=== PATIENT | male | born 1965 | race Caucasian/White ===

== ENCOUNTER → 2017-04-06 | Outpatient (CLI) | payer BC ==
[~2017-04-06] MED LIST: GADOBUTROL 10 ML VIAL IVP ONE
== END ==
LOC: FIMAGING 07:01
PROVIDERS: ATTEND Physical Medicine & Rehabilitation
DX: M25.552 Pain in left hip (principal); R93.6 Abnormal findings on diagnostic imaging of limbs; M16.0 Bilateral primary osteoarthritis of hip; M51.36 Other intervertebral disc degeneration, lumbar region; M76.892 Other specified enthesopathies of left lower limb, excluding foot
CPT/HCPCS: A9585

== ENCOUNTER → 2017-08-24 | Outpatient (CLI) | payer BC | LOC: FIMAGING 12:12 | PROVIDERS: ATTEND Physical Medicine & Rehabilitation | DX: M89.8X8 Other specified disorders of bone, other site (principal); M25.852 Other specified joint disorders, left hip; M24.151 Other articular cartilage disorders, right hip; M24.152 Other articular cartilage disorders, left hip | CPT/HCPCS: A9585 ==

== ENCOUNTER → 2017-08-30 | Outpatient (CLI) | payer BC | LOC: SBRMNEURO 20:00 | PROVIDERS: ATTEND Psychiatry & Neurology Sleep Medicine | DX: G47.33 Obstructive sleep apnea (adult) (pediatric) (principal) ==

== ENCOUNTER 2017-09-01 05:35 | Inpatient (IN) | payer BC ==
--- NOTE | 2017-08-26 10:48 | GHP ---
[f rep st] PREOP HISTORY AND PHYSICAL DATE OF ADMISSION: 09/01/2017 PROBLEM: Left hip arthritis. HISTORY OF PRESENT ILLNESS: The patient is a 52-year-old man admitted for a left hip Callie hip resurfacing arthroplasty. He states that he first injured his left hip at age 20. He had another si gnificant injury at age 33. He has had progressive pain in his left hip over the past few years. He also has chronic problems with discs in the lumbar spine. He has herniated disks at L3-4 and L4-5. His left hip is very painful. It interferes with his activities. 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 He has seen a spine surgeon and surgery has been recomm ended and he is considering that for January of 2018. 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 He has seen an orthopedic onc ologist in [place]. He has had 2 MRIs. This has been diagnosed as a benign tumor. PAST MEDICAL HISTORY: Overall he is in good general health. No history of heart disease, stents, DV T, hepatitis, or bleeding disorders. He states that he snores and he is in the process of being eval uated for sleep apnea. CURRENT MEDICATIONS: Gabapentin, Prozac, naproxen and methocarbamol. DRUG ALLERGY: None. METAL ALLERGY: None. LATEX ALLERGY: None. SOCIAL HISTORY: The patient is single. He rarely smoke cigarettes and rarely drinks alcohol. He is an electrician bus but is currently unemployed. He does not have a primary care doctor. FAMILY HISTORY: Positive for diabetes, cancer, arthritis, heart disease and high blood pressure. PHYSICAL EXAMINATION: HEIGHT: 6 feet 4 inches. WEIGHT: 275 pounds. BMI: 33.5. EYES: Conjuncti vae and sclerae are clear. Pupils are round and reactive. MOUTH: Good oral hygiene. No loose teet h. He has a few missing teeth. CHEST: Clear. HEART: Regular rhythm. No murmurs. EXTREMITIES: Pertinent findings limited to his left hip. He has full hip extension and 110 degrees of flexion. E xternal rotation 30 degrees. Internal rotation 20 degrees. Abduction 30 degrees. He has very muscu lar buttocks and thigh. IMPRESSION ON ADMISSION: 1. Left hip degenerative arthritis, labral degeneration and chronic impingement. 2. 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 3. Degenerative lumbar disk disease. PLAN: He will undergo a left hip Callie hip resurfacing arthroplasty. The surgery has been desc ribed to him, including the risks, complications, expectations, and recovery time. I have talked to him about the risk of dislocation, femoral neck fracture, infection, and sciatic nerve injury. I hav e also discussed with him extensively the controversial issue of metal ions and the metal on metal be aring surface. He understands that he is very young for any type of hip arthroplasty and will probab ly require revision surgery in the future. All of his questions have been answered, and he consents to surgery. /[id number]/MODL
[~2017-09-01 05:35] MED LIST changes: -GADOBUTROL 10 ML VIAL IVP ONE; +TRANEXAMIC ACID 2,000 MG in NS 100 ML IV ONE
[2017-09-01] MEDS ORDERED: ONDANSETRON 4 MG/2 ML VIAL IVP ONE (05:49)
[2017-09-01] MEDS ORDERED: ACETAMINOPHEN 325 MG TAB PO ONE (05:49)
[2017-09-01] MEDS ORDERED: ceFAZolin 2 GM/SWFI 2 GM/20 ML SYR IVP ONE (05:49)
[2017-09-01] MEDS ORDERED: FAMOTIDINE 20 MG TAB PO ONE (05:49)
[2017-09-01] MEDS ORDERED: GABAPENTIN 300 MG CAP PO ONE (05:49)
[2017-09-01] MEDS ORDERED: DEXAMETHASONE 4 MG/ML VIAL IVP ONE (05:49)
[2017-09-01] MEDS ORDERED: LR 1,000 ML IV ONE (05:50)
[2017-09-01] MEDS ORDERED: LIDOCAINE 1% 2 ML INJ ID PRN (05:50)
[2017-09-01] MEDS ORDERED: ROPIVACAINE 0.2% 80 MG, EPINEPHrine 0.2 MG, KETOROLAC TROMETHAMINE 30 MG in SYRINGE 0 ML IU ONE (06:00)
[2017-09-01] MEDS ORDERED: POVIDONE-IODINE 20 ML in SODIUM CL IRRIG SOLUTION 500 ML IRR ONE (06:00)
[2017-09-01] MEDS ORDERED: MIDAZOLAM 2 MG/2 ML VIAL IVP ONE (06:41)
--- NOTE | 2017-09-01 06:41 | PDANEPAE ---
ANE History of Present Illness here for CLEMENT ANE Past Medical History - Cardiovascular History Hx Hypertension: No Hx Arrhythmias: No Hx Chest Pain: No Hx Coronary Artery / Peripheral Vascular Disease: No Hx CHF / Valvular Disease: No Hx Palpitations: No - Pulmonary History Hx COPD: No Hx Asthma/Reactive Airway Disease: No Hx Recent Upper Respiratory Infection: No Hx Oxygen in Use at Home: No Hx Sleep Apnea: Yes Sleep Apnea Screening Result - Last Documented: Positive Pulmonary History Comment: PLANS TO UNDERGO SLEEP STUDY[facility] - Neurologic History Hx Cerebrovascular Accident: No Hx Seizures: No Hx Dementia: No - Endocrine History Hx Diabetes: No - Renal History Hx Renal Disorders: No - Liver History Hx Hepatic Disorders: No - Neurological & Psychiatric Hx Hx Neurological and Psychiatric Disorders: Yes Neurological / Psychiatric History Comment: HERNIATED DISC -PAIN/ MUSCLE SPASMS RADIATES DOWN L LEG. DENIES DEPRESSION- RX FOR CHEMICAL/EMOTIONAL BALANCE. - Cancer History Hx Cancer: No - Congenital Disorder History Hx Congenital Disorders: No - GI History Hx Gastrointestinal Disorders: No - Other Health History Other Health History: L HIP PAIN, "BENIGN LESION L PROXIMAL FEMUR". MRSA R AXILLA 2010. - Chronic Pain History Chronic Pain: Yes (L HIP/LOW BACK) - Surgical History Prior Surgeries: L FINGER -RECONSTRUCTION. R HAND RING FINGER-FIRST SKIN GRAFTS , SECOND SX "CROSS FLAPS" SKIN GRAFT ANE Review of Systems Review of systems is: negative Review of Systems: - Exercise capacity Exercise capacity: >=4 METS METS (RN): 4 METS ANE Patient History - Allergies Allergies/Adverse Reactions: No Known Allergies Allergy (Verified 08/25/17 11:14) - Home Medications Home medications: home medication list seen and reviewed Home Medications: ARIPiprazole [Abilify 2 mg (*)] 1 mg PO DAILY 08/23/17 [Last Taken 08/31/17 09: 00] Ascorbic Acid [Vitamin C 500 mg (*)] 500 mg PO DAILY 08/23/17 [Last Taken ] FLUoxetine HCL [Fluoxetine HCl] 40 mg PO DAILY 08/23/17 [Last Taken 09/01/17 05: 15] Gabapentin [Neurontin 300 MG (*)] 300 mg PO HS 08/23/17 [Last Taken 08/18/17] Ibuprofen [Motrin (*)] 400 mg PO Q8 PRN 08/23/17 [Last Taken 08/31/17 20:00] Methocarbamol [Robaxin 500 mg (*)] 5,000 mg PO DAILY 08/23/17 [Last Taken ] Multivitamins [Multivitamin (*)] 1 each PO DAILY 08/23/17 [Last Taken 08/25/17] Naproxen [Naprosyn] 500 mg PO TID 08/23/17 [Last Taken 08/29/17] Vitamin B Complex [Vitamin B Complex (OTC)] 1 each PO DAILY 08/23/17 [Last Taken 08/25/17] Zinc Gluconate [Zinc] 50 mg PO DAILY 08/23/17 [Last Taken 08/25/17] - NPO status NPO Status: no food or drink >8 hours - Smoking Hx Smoking Status: Former smoker ANE Labs/Vital Signs - Vital Signs Height: 193.04 cm Weight: 120.202 kg ANE Physical Exam - Airway Neck exam: FROM Mallampati Score: Class 1 - Pulmonary Pulmonary: no respiratory distress - Cardiovascular Cardiovascular: regular rate and rhythym - ASA Status ASA Status: II ANE Anesthesia Plan Anesthesia Plan: MAC, spinal
[2017-09-01] MEDS ORDERED: ceFAZolin 1 GM/5 ML SYR ONE (06:55)
--- NOTE | 2017-09-01 06:57 | PDHPUP ---
History & Physical Update H&P update statement: This history and physical update is based on an assessment of the patient which was completed after admission or registration (within 24 hours), but prior to the surgery/procedure. H&P update: H&P reviewed & patient examined
[2017-09-01] MEDS ORDERED: MIDAZOLAM 2 MG/2 ML VIAL ONE ×2 (06:58→07:04)
[2017-09-01] MEDS ORDERED: PROPOFOL/EMULSION 500 MG/50 ML BOTTLE IV ONE ×4 (07:03→08:08)
[2017-09-01] MEDS ORDERED: fentaNYL 100 MCG/2 ML INJ ONE ×2 (07:04→07:45)
[2017-09-01] MEDS ORDERED: PROPOFOL 200 MG/20 ML VIAL ONE (08:40)
--- NOTE | 2017-09-01 08:55 | POSTOPPROG ---
Post Op Note Date of Operation: 09/01/17 Surgeon: Anibal Cheung Outside Plant Technician: Teddy/Alejandro Anesthesiologist: Dr. Fonseca Anesthesia: IV Sedation, Spinal Post-op Diagnosis: left hip arthritis Procedure: left BHR Inf/Abcess present in the surg proc area at time of surgery?: No EBL: 100-500
[2017-09-01] MEDS ORDERED: PROMETHAZINE HCL 25 MG/ML INJ IVP PRN (09:14)
[2017-09-01] MEDS ORDERED: POLYETHYLENE GLYCOL 3350 17 GM PKT PO PRN (09:14)
[2017-09-01] MEDS ORDERED: BISACODYL 10 MG SUPP PR PRN (09:14)
[2017-09-01] MEDS ORDERED: diphenhydrAMINE 25 MG CAP PO PRN (09:14)
[2017-09-01] MEDS ORDERED: NS 500 ML IV PRN (09:14)
[2017-09-01] MEDS ORDERED: MAGNESIUM HYDROXIDE 30 ML UDCUP PO PRN (09:14)
[2017-09-01] MEDS ORDERED: PROMETHAZINE HCL 25 MG SUPPR PR PRN (09:14)
[2017-09-01] MEDS ORDERED: DIPHENOXYLATE/ATROPINE LOMOTIL 1 TAB PO PRN (09:14)
[2017-09-01] MEDS ORDERED: ONDANSETRON 4 MG/2 ML VIAL IVP PRN (09:14)
[2017-09-01] MEDS ORDERED: TEMAZEPAM 15 MG CAP PO PRN (09:14)
[2017-09-01] MEDS ORDERED: LACTULOSE 20 GM/30 ML UDCUP PO PRN (09:14)
[2017-09-01] MEDS ORDERED: ONDANSETRON DISINTEGRATING 4 MG TAB PO PRN (09:14)
[2017-09-01] MEDS ORDERED: LR 1,000 ML IV SCH (09:30)
--- NOTE | 2017-09-01 09:49 | GOP ---
[f rep st] OPERATIVE REPORT DATE OF OPERATION: 09/01/2017 SURGEON: Anibal Cheung MD LION TRAINER: Cody Espinal CFA and Dorian Allen P.A.-C. ANESTHESIA: Combination of Marcaine, spinal, and IV sedation. ANESTHESIOLOGIST: Brice Fonseca MD. PREOPERATIVE DIAGNOSIS: Left hip arthritis. POSTOPERATIVE DIAGNOSIS: Left hip arthritis. PROCEDURE PERFORMED: 09/01/2017, left hip Callie hip resurfacing arthroplasty. FINDINGS: ESTIMATED BLOOD LOSS: Approximately 400 mL. I used a [employer] Callie hip resurfacing system. The acetabular component was 58 mm in d iameter and press-fit. The femoral head was 52 mm and cemented. He was awakened from anesthesia and rolled to the supine position on his steward health care system. A long-leg compressive stocking and SCD were applied to the operative leg. An abduction pillow was placed between his knees. He was awakened fro m anesthesia, and rolled on to his steward health care system. He was taken to PACU in satisfactory condition. There were no recognized intraoperative complications. The sponge and needle count were correct on 2 occasions. Cody Espinal and Praveen Allen acted as surgical assistants. Their assistance was a medical necess ity for safe completion of the procedure. DESCRIPTION OF PROCEDURE: The patient was given 2 g of IV Ancef preoperatively within 60 minutes of surgery. He also received IV tranexamic acid at a dose of 1000 mg. He was placed on the operating r oom table and given spinal anesthesia with Marcaine by Dr. Fonseca. He was then placed supine and giv en IV sedation. A Luis catheter was not used. He wore a compressive stocking and SCD on the nonope rative leg. He was rolled to the right lateral decubitus position. An axillary roll was used, and a ll pressure points were carefully padded. He was a big heavy muscular man which made positioning a l ittle difficult. The position was secured with the pegboard table attachment. I was careful to lock his pelvis in a rigid vertical position. His perineum was isolated with plastic adhesive drapes. T he left hip and left lower extremity were prepped with ChloraPrep. They were draped free using steri le sheets, stockinette, and Ioban plastic drape. The [employer] Organization time-out was performed to verify the correct patient identity and the c orrect surgical side and site. The [place] time-out was also performed. I made a 7 inch straight oblique posterolateral hip skin incision. The subcutaneous tissues were sha rply divided, and hemostasis was obtained using electrocautery. The fascia dae was identified and s plit along the axis of its fibers. I curved posteriorly and proximally, and split the fascia of the gluteus brittany and bluntly split the muscle fibers in line with their orientation. His sciatic nerv e was identified and protected throughout the procedure. The Charnley self-retaining retractor was i nserted. His external rotators and the posterior hip capsule were divided as separate layers at the base of the femoral neck, tagged, and reflected posteriorly. The gluteus brittany tendon was divided and tagged in order to improve exposure and release tension on the sciatic nerve. The hip was disloc ated posteriorly. I used a sizing gauge to check the diameter of the neck and concluded that 52 mm w as the proper head size. I performed a complete circumferential capsulotomy. I was able to retract the femoral head anteriorly and superiorly, and hold it out of place with appropriate retractors. Th e remnant of his badly damaged labrum was completely excised. His acetabulum was reamed sequentially up to 58 mm. I selected the Callie monoblock porous-coated acetabular component with an outside diameter of 58 mm. This was firmly impacted and was a very tight fit. I was careful to determine p apple inclination and anteversion. I used the transverse acetabular ligament and other acetabular andrew ny landmarks to help me properly orient the cup. A moderate-sized posterior-inferior osteophyte was removed with an osteotome and rongeur. I was careful to leave a good lip of bone and capsule extendi ng beyond the anterior-inferior lip of the metal cup. I then returned to preparation of the femoral head. Using appropriate jigs and guides, I inserted a guide pin into the femoral head and neck. I was careful to position it in such a way that there woul d be no notching of the neck. The large sterile metal goniometer was used to check the neck shaft an gle. I reamed over the guide pin and inserted the reaming guide. I then used the cylindrical reamer down to the head and neck junction. This was followed by the flat reamer and the chamfer reamer. T he head was sized for 52 mm. There was no impingement or damage to the neck. He had some small ante rior neck osteophytes, which I trimmed with a rongeur. I drilled a small hole in the lesser trochant er and inserted a suction cannula to create negative pressure in the medullary canal. Small holes we re drilled on the flattened chamfer surfaces of the prepared head for cement anchors. The head was t horoughly cleaned with the pulsating lavage and carefully dried. I used a CarboJet device to blow dr y the cancellous surfaces. A single batch of Simplex cement with tobramycin was mixed. At about 50 seconds, I poured the liquid cement into the head component, inserted it onto the femoral head and im pacted it into place. Excess cement was removed before it hardened. The acetabulum was irrigated, cleaned, and inspected, and the hip was reduced. Stability and range o f motion were checked. I placed my finger along the anterior aspect of the acetabular component and flexed the hip to 110 degrees. There was no anterior impingement. The suction cannula in the lesser trochanter was removed. The wound was thoroughly irrigated with a dilute Betadine solution. 40 mL of the joint anesthetic cocktail were injected into the capsule, the deep musculature, and the subcut aneous tissues along the skin edges. His sciatic nerve was reinspected and looked unharmed. The external rotators and the posterior hip c apsule were repaired in separate layers with #2 FiberWire sutures through drill holes in the greater trochanter. This provided a strong posterior capsular and external rotator repair. The gluteus maxi mus tendon was repaired with two #2 [id number] FiberWire sutures. The fascia dae was closed fi rst with 2 interrupted [id number] #2 FiberWire sutures followed by a running #2 barbed Ethicon S tratafix PDO suture. The subcutaneous tissues were closed with a running 0 barbed Ethicon Stratafix Monoderm suture. The skin was closed with a running 3-0 barbed Ethicon Stratafix Monoderm subcuticul ar suture. The skin edges were reapproximated and sealed with Dermabond glue. The wound was covered with a large sterile Mepilex waterproof dressing. The sacral Mediplex dressing was applied. /[id number]/MODL
[2017-09-01] MEDS: oxyCODONE IR 5 MG TAB PO PRN (10:59)
--- NOTE | 2017-09-01 11:01 | PDMN ---
Medical Necessity Medical necessity: Patient meets inpatient criteria per PA/physician notes and [facility] [place] [facility] [place] Resurfacing - 2 days postop - ( CPT 68478 / Medicare inpatient- only surgery.)
[2017-09-01] MEDS: KETOROLAC 15 MG/1 ML SDV IVP SCH ×3 (12:09→23:59)
[2017-09-01] MEDS: ACETAMINOPHEN 325 MG TAB PO SCH ×3 (12:34→23:59)
[2017-09-01] MEDS: ceFAZolin 2 GM/DEXTROSE 100 ML IV SCH ×2 (14:04→22:07)
[2017-09-01] MEDS: traMADol 50 MG TAB PO PRN (15:21)
[2017-09-01] MEDS: FAMOTIDINE 20 MG TAB PO SCH (20:06)
[2017-09-01] MEDS: ASPIRIN 325 MG TAB PO SCH (20:06)
[2017-09-01] MEDS: SENNOSIDES/DOCUSATE SODIUM TAB PO SCH (20:06)
[2017-09-01] MEDS ORDERED: GABAPENTIN 300 MG CAP PO SCH (21:00)
[2017-09-02] MEDS: KETOROLAC 15 MG/1 ML SDV IVP SCH (06:00)
[2017-09-02] MEDS: ACETAMINOPHEN 325 MG TAB PO SCH ×2 (06:01→12:13)
--- NOTE | 2017-09-02 08:01 | SOAPPROG ---
SOAP Progress Note Assessment/Plan: Assessment: POD #1, s/p L BHR Awake, alert, afebrile. Normal sciatic nerve function. Dressing clean and dry. Post op films look good. VSS. H/H ok. Ambulating in room Moderate pain. Plan: PT/OT today. Discharge to home later today. 09/02/17 08:00 Objective: Vital Signs Temp Pulse Resp BP Pulse Ox 36.6 C 53 L 16 113/62 93 09/02/17 03:36 09/02/17 03:36 09/02/17 03:36 09/02/17 03:36 09/02/17 03:36 Laboratory Results 09/02/17 05:20 09/01/17 09/02/17 09/03/17 05:59 05:59 05:59 Intake Total 6525 600 Output Total 2650 450 Balance 3875 150 ICD10 Worksheet Patient Problems: Problems Problem Status Onset Osteoarthritis of left hip Acute
[2017-09-02] MEDS: traMADol 50 MG TAB PO PRN (08:38)
[2017-09-02] MEDS ORDERED: NON-FORMULARY NEW DRUG (Fluoxetine Hcl [Fluoxetine Hcl] 40 MG) PO SCH (09:00)
[2017-09-02] MEDS ORDERED: ARIPiprazole 2 MG TAB PO SCH (09:00)
[2017-09-02] MEDS ORDERED: METHOCARBAMOL 500 MG TAB PO SCH ×2 (09:00→10:15)
[2017-09-02] MEDS ORDERED: FLUoxetine 20 MG CAP PO SCH (09:00)
[2017-09-02] MEDS ORDERED: FERROUS SULFATE 140 MG TAB.ER PO SCH (09:00)
[2017-09-02] MEDS: ASPIRIN 325 MG TAB PO SCH (10:15)
[2017-09-02] MEDS: SENNOSIDES/DOCUSATE SODIUM TAB PO SCH (10:16)
[2017-09-02] MEDS: FAMOTIDINE 20 MG TAB PO SCH (10:19)
[2017-09-02] MEDS: oxyCODONE IR 5 MG TAB PO PRN ×2 (12:36→15:54)
[2017-09-02] MEDS ORDERED: HYDROCODONE/APAP 5/325 TAB PO PRN (13:54)
--- NOTE | 2017-09-02 14:49 | ASMTCMCOM ---
CM Note CM Note Notes: Pt s/p L BHR. PT rec home health/24 hour supervision. Pt declines need for HHC and reports he will have supervision. Pt has already arranged outpatient PT and transportation there. Pt provided [employer] information per his request. Pt secured a ride home today. No additional CM d/c needs identified. Date Signed: 09/02/2017 02:49 PM Electronically Signed By:HOANG Klein
[2017-09-02 15:49] VITALS: BP 137/71
--- NOTE | 2017-09-07 11:53 | GDS ---
[f rep st] DISCHARGE SUMMARY ADMISSION DIAGNOSIS: Severe left hip osteoarthritis. DISCHARGE DIAGNOSIS: Severe left hip osteoarthritis. OPERATIONS PERFORMED: Left hip Callie resurfacing arthroplasty. POSTOPERATIVE COMPLICATIONS: None. CONDITION ON DISCHARGE: Improved. DESCRIPTION OF HOSPITAL COURSE: The patient was admitted to the hospital on the day of surgery. His admission white blood cell count was normal. The same day under a combination of IV sedation and Ma rcaine spinal anesthesia, the patient underwent a left hip resurfacing arthroplasty. IV sedation and Marcaine spinal were used. He was treated with multimodal DVT prophylaxis including LUNA stockings, SCDs, full-strength aspirin, and early mobilization. On the 1st postoperative day, the patient's hemoglobin and hematocrit were 11.6 and 35.2. He did not require any transfused blood. He was seen by Physical Therapy and made good progress with hip range of motion exercises and ambulation. By the time of discharge, he was independent with his crutches and afebrile. DISPOSITION: The patient is discharged to his home. He will go directly to outpatient physical science technician apy. He has prescriptions for oxycodone and tramadol for pain at home. He also has Celebrex for 21 days. Full-strength aspirin x21 days. Zofran for nausea control. Abduction pillow in bed x3 weeks. LUNA stockings x1 week. Weightbearing as tolerated. He will follow up in the office in 3 weeks. Call so renea if there are any problems. Copy requested to: Dr. Denny /[id number]/MODL
== END 2017-09-02 17:22 | disposition home or self-care (01) | DRG 470 ==
LOC: F3N 05:35
PROVIDERS: ADMIT Orthopaedic Surgery; ATTEND Orthopaedic Surgery
PROC: 0SUB0BZ Supplement Left Hip Joint with Resurfacing Device, Open Approach (ICD-10-PCS; principal; 2017-09-01 07:15)
DX: M16.12 Unilateral primary osteoarthritis, left hip (principal); G47.30 Sleep apnea, unspecified
CPT/HCPCS: 97110-GP; 97116-GP; 97161-GP; 97165-GO; 97530-GP; C1713; J0171; J0690; J1100; J1885; J2250; J2405; J2704; J2795; J3010

== ENCOUNTER → 2017-09-29 | Outpatient (CLI) | payer BC | LOC: FIMAGING 06:37 | PROVIDERS: ATTEND Neurological Surgery | DX: M99.73 Connective tissue and disc stenosis of intervertebral foramina of lumbar region (principal); M48.061 Spinal stenosis, lumbar region without neurogenic claudication; M12.88 Other specific arthropathies, not elsewhere classified, other specified site; M51.26 Other intervertebral disc displacement, lumbar region; M51.36 Other intervertebral disc degeneration, lumbar region ==